=== PATIENT | female | born 1965 | race African-American/Black ===

== ENCOUNTER 2016-12-22 12:26 | Emergency (ER) | payer OTHER ==
[~2016-12-22] VITALS: Ht 165.1 cm; Wt 117.9 kg
--- NOTE | ~2016-12-22 | EKG ---
[place] [address] [facility] [address] ELECTROCARDIOGRAM REPORT Name: MARY LINDSEY [id number] Admission: 12/22/16 Attend Phys: Discharge: 12/22/16 Date of : 61 Report #: [id number] THIS REPORT FOR: //name// [facility] ED Test Date: 2016-12-22 Test Time: 12:33:28 Pat Name: MARY LINDSEY Department: Room: Gender: F Aed Trainer: MZOOK : 1965 Requested By: Deepak Montgomery Order Number: [id number] MD: Fidel Ralph Measurements Intervals [place] Rate: 95 P: 45 HI: 122 QRS: 3 QRSD: 91 T: 219 QT: 320 QTc: 403 Interpretive Statements Sinus rhythm Borderline repolarization abnormality No previous ECG available for comparison Electronically Signed On 12-23-2016 9:08:41 CDT by Fidel Ralph [email or web address] <ELECTRONICALLY SIGNED> By: Fidel Ralph MD, [facility] 12/23/16 0908 1233 1233 Fidel Ralph MD, FACC /EPI
[~2016-12-22 12:26] MED LIST: ALDACTONE50 MG PO; ANTIVERT25 MG PO; PERCOCET 5-3251 EACH PO; PRAVASTATIN SOD40 MG PO; TRIAMTERENE-HC1 EAC1 PO
[2016-12-22] MEDS ORDERED: ALDACTONE25 MG PO (12:57)
[2016-12-22 13:02] LABS: HEMATOCRIT 43.7 % (37.0-47.0); HEMOGLOBIN 14.1 gm/dL (12.0-15.0); MCH 26.8 pg (26.0-34.0); MCHC 32.2 g/dL (28.0-37.0); MCV 83.1 fL (80.0-100.0); PLATELET COUNT 314 thou/uL (150-400); RBC 5.26 mil/uL (4.20-5.00); RDW 13.9 % (10.5-14.5)
[2016-12-22 13:03] LABS: MANUAL DIFF YES
[2016-12-22 13:13] LABS: ANION GAP 8 mmol/L (7-16); BUN 14 mg/dL (7-18); CALCIUM 9.5 mg/dL (8.5-10.1); CHLORIDE 101 mmol/L (98-107); CO2 26 mmol/L (21-32); CREATININE 1.1 mg/dL (0.6-1.3); GLUCOSE 106 mg/dL (70-99); POTASSIUM 4.1 mmol/L (3.5-5.1); SODIUM 135 mmol/L (136-145)
[2016-12-22 13:19] LABS: ALBUMIN 3.6 g/dL (3.4-5.0); ALKALINE PHOSPHATASE 91 U/L (46-116); MAGNESIUM 1.8 mg/dL (1.8-2.4); SGOT 24 U/L (15-37); SGPT 28 U/L (30-65); TOTAL BILIRUBIN 0.3 mg/dL (<0.1-1.0); TOTAL PROTEIN 8.1 g/dL (6.4-8.2); TROPONIN-I < 0.04 ng/mL (<0.04-0.07)
[2016-12-22 13:24] LABS: TOTAL CELL COUNT 100
== END 2016-12-22 14:05 | disposition home or self-care (01) ==
LOC: ER 12:26
PROVIDERS: Emergency Medicine
DX: R00.2 Palpitations (principal); R42 Dizziness and giddiness; I10 Essential (primary) hypertension; E66.9 Obesity, unspecified; Z68.41 Body mass index [BMI] 40.0-44.9, adult; E78.00 Pure hypercholesterolemia, unspecified

== ENCOUNTER → 2017-05-26 | Outpatient (CLI) | payer OTHER ==
[~2017-05-26] MED LIST changes: +ALDACTONE25 MG PO
== END ==
LOC: RAD 01:58
DX: Z12.31 Encounter for screening mammogram for malignant neoplasm of breast (principal)

== ENCOUNTER → 2019-08-06 | Outpatient (CLI) | payer BC | LOC: RAD 01:10 | DX: Z12.31 Encounter for screening mammogram for malignant neoplasm of breast (principal) ==

== ENCOUNTER → 2020-10-11 | Outpatient (CLI) | payer BC | LOC: RAD 10-04 11:36 | PROVIDERS: ATTEND Family Medicine | DX: Z12.31 Encounter for screening mammogram for malignant neoplasm of breast (principal) ==